=== PATIENT | male | born 1965 | race American Indian/Alaskan Native ===

== ENCOUNTER 2017-03-30 15:24 | Emergency (ER) | payer SELFPAY ==
[2017-03-30 15:32] VITALS: BP 159/88
--- NOTE | 2017-03-30 17:04 | XRay Report ---
FINAL REPORT EXAM: XR HIP 2-3V LT HISTORY: left hip TECHNIQUE: AP view of the pelvis and a single coned-down view of the left hip. PRIORS: None. FINDINGS: No evidence for acute fracture or dislocation is seen. There is severe narrowing of both hip joints, left worse than right. The left hip joint is [id number] in the superior aspect. There is sclerosis of the acetabular margin superiorly and subchondral cyst formation present on both sides of the joint bilaterally. Early flattening of the left femoral head is noted due to erosion superiorly. The soft tissues demonstrate extensive calcified phleboliths in the pelvis bilaterally. Bony mineralization is normal. IMPRESSION: No acute soft tissue or bony abnormality noted in the left hip. Severe osteoarthritis in both hips, worse on the left than the right.
[2017-03-30] MEDS ORDERED: TORADOL IM ONE (19:15)
--- NOTE | 2017-03-30 20:14 | Emergency Department Report ---
ED Lower Extremity HPI - General Chief Complaint: Extremity Problem,Nontraumatic Stated Complaint: PELVIC PAIN Time Seen by Provider: 03/30/17 19:14 Source: patient Mode of arrival: Ambulatory Limitations: No Limitations - History of Present Illness Initial Comments: This is a 51-year-old male nontoxic, well nourished in appearance, no acute signs of distress presents to the ED with c/o of acute on chronic left hip pain x1 week. Patient has been complaining of left hip pain for 2 years that has worsened over a year and increased the last week. Patient denies any current trauma. Denies any numbness, tingling, fever, chills, nausea, vomiting, chest pain shortness of breath. Patient denies any allergies or significant past medical history. -: year(s) Injury: Hip: Left Severity: mild Severity scale (0 -10): 8 Improves With: immobilization Worsens With: movement Associated Symptoms: able to partially bear weight, ambulatory. denies: snap/ pop sensation, swelling, numbness, tingling, unable to bear weight - Related Data Previous Rx's Medication Instructions Recorded Last Taken Type Acetaminophen [Tylenol Arthritis] 650 mg PO Q8H PRN #30 tablet.er 03/30/17 Unknown Rx traMADol [Ultram] 50 mg PO Q6HR PRN #12 tablet 03/30/17 Unknown Rx Allergies Allergy/AdvReac Type Severity Reaction Status Date / Time No Known Allergies Allergy Unverified 03/30/17 15:28 ED Review of Systems ROS: Stated complaint: PELVIC PAIN Other details as noted in HPI Constitutional: denies: chills, fever Eyes: denies: eye pain, eye discharge, vision change ENT: denies: ear pain, throat pain Respiratory: denies: cough, shortness of breath, wheezing Cardiovascular: denies: chest pain, palpitations Endocrine: no symptoms reported Gastrointestinal: denies: abdominal pain, nausea, diarrhea Genitourinary: denies: urgency, dysuria Musculoskeletal: arthralgia. denies: back pain, joint swelling Skin: denies: rash, lesions Neurological: denies: headache, weakness, paresthesias Psychiatric: denies: anxiety, depression Hematological/Lymphatic: denies: easy bleeding, easy bruising ED Past Medical Hx - Past Medical History Previous Medical History?: No - Surgical History Past Surgical History?: No - Social History Smoking Status: Current Every Day Smoker Substance Use Type: Non Opiate Pain - Medications Home Medications: Home Medications Medication Instructions Recorded Confirmed Last Taken Type Acetaminophen [Tylenol Arthritis] 650 mg PO Q8H PRN #30 tablet.er 03/30/17 Unknown Rx traMADol [Ultram] 50 mg PO Q6HR PRN #12 tablet 03/30/17 Unknown Rx ED Physical Exam - General Limitations: No Limitations General appearance: alert, in no apparent distress - Head Head exam: Present: atraumatic, normocephalic - Eye Eye exam: Present: normal appearance - ENT ENT exam: Present: mucous membranes moist - Neck Neck exam: Present: normal inspection, full ROM - Respiratory Respiratory exam: Present: normal lung sounds bilaterally. Absent: respiratory distress, wheezes, rales, rhonchi, stridor, chest wall tenderness, accessory muscle use, decreased breath sounds, prolonged expiratory - Cardiovascular Cardiovascular Exam: Present: regular rate, normal rhythm, normal heart sounds. Absent: bradycardia, tachycardia, irregular rhythm, systolic murmur, diastolic murmur, rubs, gallop - GI/Abdominal GI/Abdominal exam: Present: soft, normal bowel sounds. Absent: distended, tenderness, guarding, rebound, rigid, diminished bowel sounds - Rectal Rectal exam: Present: deferred - Extremities Exam Extremities exam: Present: normal inspection, full ROM, tenderness (lateral hip region), normal capillary refill. Absent: pedal edema, joint swelling, calf tenderness - Expanded Lower Extremity Exam Left Hip exam: Present: normal inspection, full ROM, tenderness, external rotation, internal rotation, pelvic stability. Absent: swelling, abrasion, laceration, ecchymosis, deformity, crepidus, dislocation, erythema, shortening Knee exam: Present: normal inspection, full ROM Lower Leg exam: Present: normal inspection, full ROM Ankle exam: Present: normal inspection, full ROM Foot/Toe exam: Present: normal inspection, full ROM Neuro vascular tendon exam: Present: no vascular compromise. Absent: pulse deficit, abnormal cap refill, motor deficit, sensory deficit, tendon deficit, extremity cold to touch, pallor, abnormal 2-point discrimination, decreased fine /light touch, foot drop, peroneal nerve deficit, significant pain with passive ROM of distal joint Gait: Positive: observed and limited by pain - Back Exam Back exam: Present: normal inspection, full ROM. Absent: tenderness, CVA tenderness (R), CVA tenderness (L), muscle spasm, paraspinal tenderness, vertebral tenderness, rash noted - Neurological Exam Neurological exam: Present: alert, oriented X3, CN II-XII intact, normal gait, reflexes normal - Psychiatric Psychiatric exam: Present: normal affect, normal mood - Skin Skin exam: Present: warm, dry, intact, normal color. Absent: rash ED Course Vital Signs 03/30/17 15:29 Temperature 97.4 F L Pulse Rate 67 Respiratory 20 Rate Blood Pressure 159/88 O2 Sat by Pulse 99 Oximetry - Reevaluation(s) Reevaluation #1: 03/30/17 20:14 Patient is speaking in full sentences with no signs of distress noted. ED Lower Extremity MDM - Medical Decision Making This is a 51-year-old male that presents with arthritis of the left hip. Patient is stable and was examined by me. Xray has been obtained and dictated by radioloist with severe arthritis of the left hip. Patient is notified of x- ray results with no questionable noted by the patient. Patient received 30 mg of Toradol IM which patient stated symptoms are improving subsided. Patient discharged with Tylenol arthritis and Ultram. He was instructed not to operate any machinery while taking Ultram due to drowsiness. Patient is also instructed to Follow-up with a orthopedic doctor in 3-5 days or if symptoms worsen and continue return to emergency room as soon as possible. At time of discharge, the patient does not seem toxic or ill in appearance. No acute signs of distress noted. Patient agrees to discharge treatment plan of care. No further questions noted by the patient. Critical care attestation.: If time is entered above; I have spent that time in minutes in the direct care of this critically ill patient, excluding procedure time. ED Disposition Clinical Impression: Arthritis of left hip Disposition: DC-01 TO HOME OR SELFCARE Is pt being admited?: No Does the pt Need Aspirin: No Condition: Stable Instructions: Osteoarthritis (ED) Additional Instructions: Follow-up with a orthopedic doctor in 3-5 days or if symptoms worsen and continue return to emergency room as soon as possible Do not operate any machinery while taking Ultram due to drowsiness Prescriptions: Acetaminophen [Tylenol Arthritis] 650 mg PO Q8H PRN #30 tablet.er PRN Reason: Pain traMADol [Ultram] 50 mg PO Q6HR PRN #12 tablet PRN Reason: Pain Referrals: PRIMARY CAREMD [Primary Care Provider] - 3-5 Days MARY BOYCE MD [Staff Physician] - 3-5 Days [facility] [Outside] - 3-5 Days [facility] [Outside] - 3-5 Days Forms: Work/School Release Form(ED)
== END 2017-03-30 20:35 | disposition home or self-care (01) ==
LOC: ED 15:24
DX: M16.12 Unilateral primary osteoarthritis, left hip (principal); G89.29 Other chronic pain; F17.200 Nicotine dependence, unspecified, uncomplicated
CPT/HCPCS: 73502; 96372; 99283; J1885

== ENCOUNTER 2017-08-04 20:23 | Emergency (ER) | payer SELFPAY ==
[2017-08-04 20:40] VITALS: BP 147/90
[2017-08-05] MEDS ORDERED: TORADOL IM ONE (03:06)
--- NOTE | 2017-08-05 03:10 | Emergency Department Report ---
ED General Adult HPI - General Chief complaint: Pain General Stated complaint: HIP,BACK,KNEES PAIN SWELLING Time Seen by Provider: 08/05/17 02:04 Source: patient Mode of arrival: Ambulatory Limitations: No Limitations - History of Present Illness Initial comments: 52-year-old -[place] male comes in for chronic back and hip pain. Patient is requesting pain medication and another referral to orthopedics. Patient reports he's been taken naproxen and ibuprofen as well as Tylenol arthritis but not helping at this time. Patient is requesting a Toradol injection so he can get comfortable to sleep tonight. Patient reports that his pain is a 10 out of 10. Past medical history chronic arthritis. -: month(s) (4) Location: back, lower extremity Severity scale (0 -10): 9 Quality: stabbing (left hip), aching, sharp Consistency: constant Improves with: none Worsens with: movement, rest Associated Symptoms: denies other symptoms Treatments Prior to Arrival: NSAID - Related Data Previous Rx's Medication Instructions Recorded Last Taken Type Acetaminophen [Tylenol Arthritis] 650 mg PO Q8H PRN #30 tablet.er 08/05/17 Unknown Rx traMADol [Ultram 50 MG tab] 50 mg PO Q6HR PRN #24 tablet 08/05/17 Unknown Rx Allergies Allergy/AdvReac Type Severity Reaction Status Date / Time No Known Allergies Allergy Unverified 03/30/17 15:28 ED Review of Systems ROS: Stated complaint: HIP,BACK,KNEES PAIN SWELLING Other details as noted in HPI Gastrointestinal: denies: abdominal pain, nausea, diarrhea Musculoskeletal: back pain, arthralgia (left hip pain) Neurological: denies: headache, weakness, paresthesias ED Past Medical Hx - Past Medical History Additional medical history: chronic arthritis - Social History Smoking Status: Current Every Day Smoker Substance Use Type: None - Medications Home Medications: Home Medications Medication Instructions Recorded Confirmed Last Taken Type Acetaminophen [Tylenol Arthritis] 650 mg PO Q8H PRN #30 tablet.er 08/05/17 Unknown Rx traMADol [Ultram 50 MG tab] 50 mg PO Q6HR PRN #24 tablet 08/05/17 Unknown Rx ED Physical Exam - General Limitations: No Limitations General appearance: alert, in no apparent distress - Head Head exam: Present: atraumatic, normocephalic - Eye Eye exam: Present: normal appearance - Respiratory Respiratory exam: Present: normal lung sounds bilaterally. Absent: respiratory distress - Cardiovascular Cardiovascular Exam: Present: regular rate, normal rhythm. Absent: systolic murmur, diastolic murmur, rubs, gallop - Back Exam Back exam: Present: full ROM - Expanded Back Exam Expanded Back exam: Sciatic Notch Tenderness: Left, Positive Straight Leg Raise: Left - Neurological Exam Neurological exam: Present: alert, oriented X3 - Psychiatric Psychiatric exam: Present: normal affect, normal mood - Skin Skin exam: Present: warm, dry, intact, normal color. Absent: rash ED Course Vital Signs 08/04/17 08/04/17 20:39 20:59 Temperature 98.3 F 98.3 F Pulse Rate 60 60 Respiratory 18 18 Rate Blood Pressure 147/90 Blood Pressure 147/90 [Right] O2 Sat by Pulse 99 Oximetry ED Medical Decision Making - Medical Decision Making Patient has been evaluated by this provider fast track. Patient comes in for chronic back pain with non-traumatic injury. Toradol 60 mg IM. Discharge patient on Ultram 50 mg every 6 hours when necessary. As well as Tylenol arthritis 650 mg every [address] Flaherty orthopedist. Patient verbalizes understanding Critical care attestation.: If time is entered above; I have spent that time in minutes in the direct care of this critically ill patient, excluding procedure time. ED Disposition Clinical Impression: Chronic back pain greater than 3 months duration, Chronic left hip pain Disposition: TO HOME OR SELFCARE Is pt being admited?: No Does the pt Need Aspirin: No Condition: Stable Additional Instructions: Please take pain medication as prescribed. Follow-up with orthopedist or pain management provider for your chronic pain. Prescriptions: Acetaminophen [Tylenol Arthritis] 650 mg PO Q8H PRN #30 tablet.er PRN Reason: Pain traMADol [Ultram 50 MG tab] 50 mg PO Q6HR PRN #24 tablet PRN Reason: Pain Referrals: PRIMARY CAREMD [Primary Care Provider] - 3-5 Days MARY FLAHERTY MD [Staff Physician] - 3-5 Days Forms: Work/School Release Form(ED)
== END 2017-08-05 03:15 | disposition home or self-care (01) ==
LOC: ED 20:23
DX: G89.29 Other chronic pain (principal); M54.9 Dorsalgia, unspecified; M25.552 Pain in left hip; F17.200 Nicotine dependence, unspecified, uncomplicated; M19.90 Unspecified osteoarthritis, unspecified site
CPT/HCPCS: 96372; 99282; J1885

== ENCOUNTER 2019-07-29 23:17 | Emergency (ER) | payer MEDICAID ==
--- NOTE | 2019-07-30 00:03 | XRay Report ---
CHEST 1 VIEW 07/29/2019 10:52 PM INDICATION / CLINICAL INFORMATION: Chest Pain. COMPARISON: None available. FINDINGS: SUPPORT DEVICES: None. HEART / MEDIASTINUM: No significant abnormality. LUNGS / PLEURA: No significant pulmonary or pleural abnormality. No pneumothorax. ADDITIONAL FINDINGS: No significant additional findings. IMPRESSION: 1. No acute findings. Signer Name: Сергей Worthy MD Signed: 07/29/2019 11:59 PM Workstation Name: [id number]
[2019-07-30] MEDS ORDERED: CYCLOBENZAPRINE 10 MG TAB PO ONE (00:37)
[2019-07-30] MEDS ORDERED: IPRATROPIUM/ALBUTEROL SULFATE 3 ML AMPUL.NEB IH ONE (00:37)
[2019-07-30 00:58] LABS: Basophils % (Auto) 0.3 % (0.0-1.8); Eosinophils # (Auto) 0.2 K/mm3 (0.0-0.4); Eosinophils % (Auto) 2.6 % (0.0-4.3); Hematocrit 41.3 % (35.5-45.6); Hemoglobin 13.6 gm/dl (11.8-15.2); Lymphocytes # (Auto) 1.9 K/mm3 (1.2-5.4); Lymphocytes % (Auto) 21.9 % (13.4-35.0); Mean Corpuscular HGB Conc 33 % (32-34); Mean Corpuscular Volume 88 fl (84-94); Monocytes # (Auto) 0.7 K/mm3 (0.0-0.8); Monocytes % (Auto) 7.6 % (0.0-7.3); Platelet Count 335 K/mm3 (140-440); Red Cell Distribution Width 16.6 % (13.2-15.2)
[2019-07-30 01:01] LABS: BUN/Creatinine Ratio 12; Blood Urea Nitrogen 11 mg/dL (9-20); Calcium 8.8 mg/dL (8.4-10.2); Hemolysis Index 10
--- NOTE | 2019-07-30 01:22 | Emergency Department Report ---
ED Chest Pain HPI - General Chief Complaint: Chest Pain Stated Complaint: CHEST PAIN Time Seen by Provider: 07/30/19 00:09 Source: patient, EMS Mode of arrival: Ambulatory Limitations: No Limitations - History of Present Illness Initial Comments: 54-year-old male presents to the emergency department with complaint of some left-sided mid upper back pain that started this morning. At the time the patient also complained of some midsternal chest pain but that has since resolved without any treatment. He has a history of arthritis. He is a tobacco smoker but denies any illicit drug use. Patient has had some issues with intermittent chest pain in the past. He had a negative stress test earlier this year prior to having his hip replaced. The patient has been following up with his primary care physician as well regarding the intermittent chest pain and he says that his PCP, Dr. Narayanan, thinks it may be a pulmonary issue. He has an appointment scheduled to establish care with a sports manager. The back pain is reproducible and also appears to worsen with certain movements. He has not taken anything for it prior to presentation. No recent travel or sick contacts at home. - Related Data Previous Rx's Medication Instructions Recorded Last Taken Type Acetaminophen [Tylenol Arthritis] 650 mg PO Q8H PRN #30 tablet.er 08/05/17 Unknown Rx traMADoL [Ultram 50 MG tab] 50 mg PO Q6HR PRN #24 tablet 08/05/17 Unknown Rx Cyclobenzaprine [Flexeril] 10 mg PO TID PRN #12 tablet 07/30/19 Unknown Rx Ibuprofen [Motrin 800 MG tab] 800 mg PO Q8HR PRN #20 tablet 07/30/19 Unknown Rx Allergies Allergy/AdvReac Type Severity Reaction Status Date / Time No Known Allergies Allergy Unverified 03/30/17 15:28 Heart Score - HEART Score History: Slightly suspicious EKG: Normal Age: 45-65 Risk factors: 1-2 risk factors Troponin: < normal limit HEART Score: 2 - Critical Actions Critical Actions: 0-3 pts:0.9-1.7%risk of adverse cardiac event.Candidate for discharge ED Review of Systems ROS: Stated complaint: CHEST PAIN Other details as noted in HPI Comment: All other systems reviewed and negative Constitutional: denies: chills, fever Eyes: denies: eye pain, vision change ENT: denies: ear pain, throat pain Respiratory: cough (chronic). denies: wheezing Cardiovascular: chest pain (resolved). denies: palpitations Gastrointestinal: denies: abdominal pain, vomiting Genitourinary: denies: dysuria, discharge Musculoskeletal: back pain. denies: arthralgia Skin: denies: rash, lesions Neurological: denies: headache, weakness ED Past Medical Hx - Past Medical History Previous Medical History?: Yes Hx Arthritis: Yes Additional medical history: chronic arthritis - Surgical History Past Surgical History?: Yes Additional Surgical History: B/L hip replacement - Social History Smoking Status: Current Every Day Smoker Substance Use Type: None - Medications Home Medications: Home Medications Medication Instructions Recorded Confirmed Last Taken Type Acetaminophen [Tylenol Arthritis] 650 mg PO Q8H PRN #30 tablet.er 08/05/17 Unknown Rx traMADoL [Ultram 50 MG tab] 50 mg PO Q6HR PRN #24 tablet 08/05/17 Unknown Rx Cyclobenzaprine [Flexeril] 10 mg PO TID PRN #12 tablet 07/30/19 Unknown Rx Ibuprofen [Motrin 800 MG tab] 800 mg PO Q8HR PRN #20 tablet 07/30/19 Unknown Rx ED Physical Exam - General Limitations: No Limitations - Other Other exam information: GENERAL: The patient is well-developed well-nourished. HENT: Normocephalic. Atraumatic. Patient has moist mucous membranes. EYES: Extraocular motions are intact. NECK: Supple. Trachea is midline. CHEST/LUNGS: Clear to auscultation. There is no respiratory distress noted. HEART/CARDIOVASCULAR: Regular. There is no tachycardia. ABDOMEN: Abdomen is soft, nontender. Patient has normal bowel sounds. Obese habitus. SKIN: Skin is warm and dry. NEURO: The patient is awake, alert, and oriented. The patient is cooperative. The patient has no focal neurologic deficits. Normal speech. MUSCULOSKELETAL: There is no tenderness or deformity. There is no limitation range of motion. BACK: No midline thoracic or lumbar tenderness to palpation, step-off or deformity. There is some reproducible left lateral upper thoracic back pain to palpation. ED Course Vital Signs 07/29/19 07/30/19 07/30/19 23:23 00:30 01:16 Temperature 98.6 F Pulse Rate 58 L 59 L 54 L Pulse Rate [ Bilateral] Respiratory 20 14 21 Rate Respiratory Rate [Bilateral ] Blood Pressure 141/84 126/77 125/76 O2 Sat by Pulse 100 99 98 Oximetry 07/30/19 01:21 Temperature Pulse Rate Pulse Rate [ 60 Bilateral] Respiratory Rate Respiratory 20 Rate [Bilateral ] Blood Pressure O2 Sat by Pulse Oximetry MILENA score - Milena Score Age > 65: (0) No Aspirin use within the Past 7 Days: (0) No 3 or more CAD Risk Factors: (0) No 2 or more Angina events in past 24 hrs: (1) Yes Known CAD with more than 50% Stenosis: (0) No Elevated Cardiac Markers: (0) No ST Deviation Greater than 0.5mm: (0) No MILENA Score: 1 ED Medical Decision Making - Lab Data Result diagrams: 07/30/19 00:20 07/30/19 00:20 - EKG Data -: EKG Interpreted by Me EKG shows normal: sinus rhythm, axis, intervals, QRS complexes, ST-T waves Rate: normal - EKG Data When compared to previous EKG there are: previous EKG unavailable Interpretation: normal EKG - Radiology Data Radiology results: image reviewed interpreted by me: Chest x-ray does not show any acute process. There are no pleural effusions, obvious pneumonia and there is no pneumothorax. - Medical Decision Making This patient presents with a complaint of some left upper back pain. He had some midsternal chest pain earlier but that has since resolved. The patient also says that he has had some intermittent chest pains in the past. However he also had a negative stress test at the beginning of this year and follows outpatient with [facility]. On examination he does not have any midline thoracic or lumbar tenderness to palpation, step-off or deformity. There is reproducible tenderness to palpation to the mid to upper left lateral thoracic back. The patient also has pain there with certain movements of his torso. An EKG was done that does not show any signs of ST elevation AL. Patient's labs have been unremarkable thus far including CBC, metabolic panel and a negative troponin. While the back pain does appear to be consistent with something musculoskeletal, the patient had previous chest pain, continues to have back pain, and also had some previous shortness of breath. He appears low suspicion for coronary artery disease as he is low on the heart and MILENA score and has the recent negative stress test. The patient will have a d-dimer level drawn. If positive, the patient will be sent for a CT angiography of the chest. If negative, the patient has been set up to be discharged home to follow-up with primary care, cardiology, and pulmonology. Critical care attestation.: If time is entered above; I have spent that time in minutes in the direct care of this critically ill patient, excluding procedure time. ED Disposition Clinical Impression: Intermittent chest pain Back pain Qualifiers: Back pain location: thoracic back pain Chronicity: unspecified Back pain laterality: left Qualified Code(s): M54.6 - Pain in thoracic spine Disposition: TO HOME OR SELFCARE Is pt being admited?: No Condition: Stable Instructions: Chest Pain (ED), Back Pain (ED) Additional Instructions: Please follow-up with your primary care physician in the next few days. Follow- up with your revenue cycle specialist at [facility] cardiology. Return to the emergency department with any worsening of your symptoms or any acute distress. You have been prescribed a medication that is sedating and therefore should not be taken prior to driving, working, and responsible for children and in no way should be mixed with alcohol of any quantity. Prescriptions: Cyclobenzaprine [Flexeril] 10 mg PO TID PRN #12 tablet PRN Reason: Muscle Spasm Ibuprofen [Motrin 800 MG tab] 800 mg PO Q8HR PRN #20 tablet PRN Reason: Pain , Severe (7-10) Referrals: [facility] [Provider Group] - 3-5 Days PCP, Your [Other] - 3-5 Days Time of Disposition: 02:01
[2019-07-30] MEDS ORDERED: KETOROLAC 30 MG/1 ML INJ IV ONE (01:26)
[2019-07-30 04:02] VITALS: BP 122/79
== END 2019-07-30 04:25 | disposition home or self-care (01) ==
LOC: ED 23:17
DX: M54.89 Other dorsalgia (principal); R07.89 Other chest pain; R05 Cough; M13.88 Other specified arthritis, other site; G89.29 Other chronic pain; F17.200 Nicotine dependence, unspecified, uncomplicated; Z98.890 Other specified postprocedural states
CPT/HCPCS: 36415; 71045; 80048; 84484; 85025; 85379; 93005; 94640; 96374; 99285; J1885; 94644